=== PATIENT | male | born 1940 | race Caucasian/White ===

== ENCOUNTER 2017-11-03 09:06 | Inpatient (IN) | payer BC ==
[2017-11-03] VITALS (23 sets, daily range): BP systolic 110–161; BP diastolic 55–83; PULSE 58–89; RESP 10–23; Ht 177.8 cm; Wt 87.3 kg
[~2017-11-03] VITALS: Ht 177.8 cm; Wt 87.3 kg
[~2017-11-03 09:06] MED LIST: LIDOCAINE 2% (SDV) 5 ML INJ ONE
[2017-11-03] MEDS ORDERED: TRANEXAMIC ACID 1,000 MG in DEXTROSE 5% 100 ML IVPB ONE ×2 (09:30→12:00)
[2017-11-03] MEDS ORDERED: CEFAZOLIN 2 GM/50 ML (PMX) 50 ML IVPB ONE (09:30)
[2017-11-03] MEDS ORDERED: FINA5TAB4 PO (09:48)
[2017-11-03] MEDS ORDERED: LOSA1TAB28 PO (09:48)
[2017-11-03] MEDS ORDERED: CELE100C PO (09:49)
[2017-11-03] MEDS ORDERED: TERA10CA42 PO (09:49)
[2017-11-03] MEDS ORDERED: GABA100C14 PO (09:50)
--- NOTE | 2017-11-03 10:21 | HPN ---
Date/Time of Note Date/Time of Note DATE: 11/03/17 TIME: 10:21 Interval H&P Admission Note Pt. seen H&P reviewed: No system changes LAUREN KELLOGG PA-C Nov 03, 2017 10:21
[2017-11-03] MEDS ORDERED: ROPIVACAINE 0.2% 60 ML, CLONIDINE 100 MCG, EPINEPHrine 0.3 MG, SOD CHLORIDE 0.9% 50 ML INJ SCH ×4 (11:30)
[2017-11-03] MEDS ORDERED: POLYMYXIN B 500000 UNIT INJ ONE (12:43)
[2017-11-03] MEDS ORDERED: MIDAZOLAM 1 MG/ML 2 ML INJ ONE (13:15)
[2017-11-03] MEDS ORDERED: FENTAnyl 50 MCG/ML VIAL ONE (13:16)
[2017-11-03] MEDS ORDERED: PROPOFOL 20 ML ONE (13:31)
[2017-11-03] MEDS ORDERED: ROCURONIUM 50 MG INJ ONE (13:31)
[2017-11-03] MEDS ORDERED: DEXAMETHASONE 4 MG/ML 1 ML INJ ONE (13:32)
[2017-11-03] MEDS ORDERED: CEFAZOLIN 1 GM INJ ONE (13:32)
--- NOTE | 2017-11-03 14:29 | RADRPT ---
PROCEDURE: XR Knee. CLINICAL INDICATION: Left knee replacement TECHNIQUE: AP image of the left knee was obtained. The image was reviewed on a PACS workstation. COMPARISON: None. FINDINGS: The patient demonstrates placement of left knee replacement hardware, with femoral and tibial compon ents. Alignment appears near anatomic. There is medial soft tissue swelling. IMPRESSION: Single AP image demonstrates placement of left knee arthroplasty hardware. Medial soft tissue swelli ng. RPTAT: DD .Narendra Patrick MD, MD Date Time Electronically viewed and signed by .Narendra Patrick MD, MD on 11/03/2017 14:29 .T/
--- NOTE | 2017-11-03 14:47 | SIPON ---
Date/Time of Note Date/Time of Note DATE: 11/03/17 TIME: 14:46 Operative Report Preoperative Diagnosis left knee DJD Postoperative Diagnosis same Operation/Procedure Performed left total knee replacement Surgeon see signature line collections assistant Kedar Clay Second assist: LAUREN KELLOGG PA-C Anesthesia: spinal Estimated blood loss: 150 - 200 ml's Transfusion Required none Specimen none Grafts/Implants 6 femur, 6 tibia, 8 poly, 38 patella from [employer] system Complications none BRIANNA KAISER Nov 03, 2017 14:47
[2017-11-03] MEDS ORDERED: BACITRACIN 50000 UNITS INJ ONE (14:53)
[2017-11-03] MEDS ORDERED: ROPIVACAINE 0.5 % 30 ML VIAL ONE (14:56)
--- NOTE | 2017-11-03 15:08 | PDOCDIS ---
Discharge Instructions DIAGNOSIS Discharge Diagnosis Status post left total knee arthroplasty CONDITION Patient Condition: Good HOME CARE INSTRUCTIONS: Diet Instructions: Regular ACTIVITY: Activity Restrictions: Slowly Increase Activity Rest between Activity Avoid heavy lifting No Sexual Activity Do not Drive Do not operate Machinery Do not operate Power Tool Avoid Heavy Housework Keep Limb Elevated (2-3 pillows under the foot/ankle only. May use cold therapy over surgical dressing.) Weight Bearing (Weight-bear as tolerated using front wheeled walker) Bathing Restrictions: Shower (Mepilex dressing to remain on until postoperative visit. Keep the area clean and dry.) FOLLOW UP/APPOINTMENTS Follow-up Plan Follow-up at postoperative visit provided to you at your preoperative exam. LAUREN KELLOGG PA-C Nov 03, 2017 15:08
[2017-11-03] MEDS ORDERED: MEPERIDINE 25 MG INJ IV PRN (15:30)
[2017-11-03] MEDS ORDERED: ONDANSETRON 4 MG INJ IV PRN (15:30)
[2017-11-03] MEDS ORDERED: ASPIRIN (EC) 325 MG TAB PO ONE (15:30)
[2017-11-03] MEDS ORDERED: BISACODYL 10 MG SUPP PR PRN (15:30)
[2017-11-03] MEDS ORDERED: DIPHENHYDRAMINE 50 MG INJ IV PRN (15:30)
[2017-11-03] MEDS ORDERED: MAGNESIUM HYDROXIDE 30ML CUP PO PRN (15:30)
[2017-11-03] MEDS ORDERED: BETHANECHOL 25 MG TAB PO PRN (15:30)
[2017-11-03] MEDS ORDERED: hydrALAzine 20 MG INJ IV PRN (15:30)
[2017-11-03] MEDS ORDERED: FENTAnyl 50 MCG/ML VIAL IV PRN ×3 (15:30)
[2017-11-03] MEDS ORDERED: SENNA/DOCUSATE NA (8.6MG/50MG) TAB PO PRN (15:30)
[2017-11-03] MEDS ORDERED: oxyCODONE 5 MG TAB PO PRN ×2 (15:30)
[2017-11-03] MEDS ORDERED: DOCUSATE SODIUM 100 MG CAP PO ONE (15:30)
[2017-11-03] MEDS ORDERED: HYDROmorphONE (0.2 MG/ML) 10ML SYG IV PRN ×3 (15:30)
[2017-11-03] MEDS ORDERED: LABETALOL HCL 20MG INJ IV PRN (15:30)
[2017-11-03] MEDS ORDERED: NA PHOSPHATE/BIPHOS 133 ML ENEMA PR PRN (15:30)
[2017-11-03] MEDS ORDERED: DIPHENHYDRAMINE 50 MG INJ IM PRN (15:30)
[2017-11-03] MEDS ORDERED: EPHEDrine SULFATE 50 MG/5 ML SYG IV PRN (15:30)
[2017-11-03] MEDS ORDERED: KETOROLAC 30 MG INJ IV PRN (15:30)
[2017-11-03] MEDS ORDERED: KETOROLAC 15 MG INJ IV PRN (15:30)
[2017-11-03] MEDS ORDERED: METOCLOPRAMIDE 10 MG INJ IV PRN (15:30)
[2017-11-03] MEDS ORDERED: ZOLPIDEM 5 MG TAB PO PRN (15:30)
[2017-11-03] MEDS ORDERED: NALOXONE (0.4 MG/ML) INJ IV PRN (15:30)
[2017-11-03] MEDS: CEFAZOLIN 1 GM/50 ML (PMX) 50 ML IVPB SCH ×2 (15:49→23:38)
[2017-11-03] MEDS: ONDANSETRON 4 MG INJ IV SCH ×2 (15:49→21:30)
[2017-11-03] MEDS: SOD CHLORIDE 0.9% 1,000 ML IV SCH (18:06)
[2017-11-03] MEDS: CEPASTAT LOZENGE MT PRN ×2 (18:06→21:54)
--- NOTE | 2017-11-03 19:05 | CONS ---
DATE OF ADMISSION: 11/03/2017 DATE OF CONSULTATION: 11/03/2017 REASON FOR CONSULTATION: This is a 76-year-old male, status post left total knee replacement. HISTORY OF PRESENT ILLNESS: A 76-year-old male with past medical history of essential hypertension, osteoarthritis of both knees, enlarged prostate who was brought in for elective surgery after experiencing left knee pain for quite some time now. He describes his knee as "bone on bone" and underwent left total knee replacement earlier today. Presently denies any chest pain or shortness of breath. No fevers or chills, diarrhea or constipation, upper or lower GI bleeding. No nausea or vomiting. PAST MEDICAL HISTORY: As stated above. ALLERGIES: MELOXICAM. MEDICATION: Include: 1. Losartan/hydrochlorothiazide 100/12.5 one tab daily. 2. Terazosin 10 mg at bedtime. 3. Celebrex 10 mg b.i.d. 4. Gabapentin 100 mg t.i.d. 5. Finasteride 5 mg daily. PAST SURGICAL HISTORY: He has had 3 hernia repairs in the past. SOCIAL HISTORY: Occasional alcohol use. FAMILY HISTORY: Noncontributory. PHYSICAL EXAMINATION: VITAL SIGNS: T-max 98.3, pulse of 64-70, respirations 13-21, blood pressure is 152/79, saturating at 94 percent room air. GENERAL: The patient lying in bed, answers question appropriately. Family is at the bedside. No acute distress. HEENT: Pupils equal, round, react to light. Extraocular muscles intact. NECK: Supple. No thyromegaly. LUNGS: Clear to auscultation bilaterally. CARDIAC: S1, S2. No murmurs, rubs, gallops. ABDOMEN: Soft, nontender, nondistended. Normal bowel sounds. No rebound or guarding. MUSCULOSKELETAL: Slightly decreased range of motion left lower extremity, otherwise, no lower extremity edema bilaterally. NEUROLOGIC: No focal deficits. LABORATORY: There is no new laboratory reports. IMPRESSION AND PLAN: A 76-year-old male, status post left total knee replacement, history of arthritis, hypertension, enlarged prostate. 1. Status post left total knee replacement. Again, follow up recommendations from primary team including pain control medications, physical therapy, IV fluids. 2. Essential hypertension. Blood pressure is presently stable. Consider restarting patient's home blood pressure medicine in 24 hours. 3. History of enlarged prostate. Will reintroduce patients terazosin tonight and monitor urinary output. We will continue to follow. Dictated By: Da Bailon MD /ally/taylor Holcomb#: [id number]/Document#: [id number]
[2017-11-03] MEDS: LOSARTAN 50 MG TAB PO SCH (20:00)
[2017-11-03] MEDS: GABAPENTIN 100 MG CAP PO SCH (20:38)
[2017-11-03] MEDS ORDERED: TERAZOSIN 5 MG CAP PO SCH (21:00)
[2017-11-04] MEDS: ONDANSETRON 4 MG INJ IV SCH ×2 (02:32→08:18)
[2017-11-04] MEDS: SOD CHLORIDE 0.9% 1,000 ML IV SCH (04:05)
[2017-11-04 06:14] LABS: ADD UMIC YES; UR ASCORBIC ACID NEGATIVE (NEGATIVE); UR BILIRUBIN (Dip) NEGATIVE (NEGATIVE); UR BLOOD (Dip) 2+ mg/dL (NEGATIVE); UR CLARITY CLEAR (CLEAR); UR COLOR STRAW (YELLOW); UR GLUCOSE (Dip) NEGATIVE (NEGATIVE); UR KETONES (Dip) NEGATIVE (NEGATIVE); UR LEUKOCYTE ESTERASE (Dip) TRACE Leu/ul (NEGATIVE); UR NITRITE (Dip) NEGATIVE (NEGATIVE); UR RBC 6 /HPF (0-5); UR SPECIFIC GRAVITY (Dip) 1.009 (1.003-1.030); UR TOTAL PROTEIN (Dip) NEGATIVE (NEGATIVE); UR UROBILINOGEN (Dip) NEGATIVE (NEGATIVE)
[2017-11-04 07:23] VITALS: BP 146/76; RESP 18
--- NOTE | 2017-11-04 07:56 | PN ---
Date/Time of Note Date/Time of Note DATE: 11/04/17 TIME: 07:54 Assessment/Plan VTE Prophylaxis VTE Prophylaxis Intervention: ambulation, SCD's, other (Aspirin 325 mg) Lines/Catheters IV Catheter Type (from Nrsg): Peripheral IV Mendez in Place (from Nrsg): Yes Assessment/Plan Assessment/Plan -Pain Meds as needed -Patient will initiate physical therapy today. Patient will likely be going home if cleared by physical therapy. -ASA for DVT Prophylaxis x 4 weeks outpatient discussed. -Continue monitoring as outpatient on discharge -Follow-up at scheduled postop outpatient appointment or sooner if there is any issue. -Patient Stable -Discharge to Home with home health Subjective 24 Hr Interval Summary 76-year-old male postop day 1 status post left total knee arthroplasty. No acute overnight events. Patient has yet to start physical therapy as this case was finished late yesterday evening. Denies any calf pain, chest pain or tightness. Patient is resting comfortably in bed. Pain is well controlled. Constitutional: no complaints Exam/Review of Systems Vital Signs Vitals Vital Signs Date Time Temp Pulse Resp B/P Pulse Ox O2 Delivery O2 Flow Rate FiO2 11/04/17 07:23 97.9 84 18 146/76 98 11/03/17 23:36 Room Air Intake and Output 11/03/17 11/03/17 11/04/17 14:59 22:59 06:59 Intake Total 2050 ml 2470 ml Output Total 150 ml 1400 ml 1800 ml Balance -150 ml 650 ml 670 ml Exam Free Text/Dictation -No complications with dressing intact. -5/5 Tibialis Anterior, EHL Gastrocnemius/Soleus and Peroneals -Fully extending on exam today and flexing up to 80. -Normal Sensation -Palpable DP/PT, Capillary Refill <2 secs -No Distal Edema -Negative Antonio Sign/No calf pain -Toes Freely Movable Constitutional: alert, oriented, well developed LAUREN KELLOGG PA-C Nov 04, 2017 07:56
[2017-11-04] MEDS: CEFAZOLIN 1 GM/50 ML (PMX) 50 ML IVPB SCH (08:08)
[2017-11-04] MEDS: LOSARTAN 50 MG TAB PO SCH (08:11)
[2017-11-04] MEDS: GABAPENTIN 100 MG CAP PO SCH (08:12)
[2017-11-04] MEDS: CEPASTAT LOZENGE MT PRN (08:18)
[2017-11-04] MEDS ORDERED: HYDROCHLOROTHIAZIDE 12.5 MG CAP PO SCH (09:00)
[2017-11-04] MEDS ORDERED: FINASTERIDE 5 MG TAB PO SCH (09:00)
[2017-11-04] MEDS ORDERED: FERROUS FUMARATE (SR) TAB PO SCH (09:00)
[2017-11-04] MEDS ORDERED: DOCUSATE SODIUM 100 MG CAP PO SCH (09:00)
[2017-11-04] MEDS ORDERED: ASPIRIN (EC) 325 MG TAB PO SCH (09:00)
[2017-11-04 09:13] LABS: ABNORMAL IP MESSAGE 1; BASOPHILS % 0.1 % (0.0-2.0); HEMATOCRIT 32.7 % (42.0-52.0); HEMOGLOBIN 11.1 g/dl (14.0-18.0); LYMPHOCYTES # 1.1 10^3/ul (0.8-2.9); MEAN CORPUSCULAR HEMOGLOBIN 30.2 pg (29.0-33.0); MEAN CORPUSCULAR HGB CONC 33.9 g/dl (32.0-37.0); MEAN CORPUSCULAR VOLUME 89.1 fl (82.0-101.0); MEAN PLATELET VOLUME 13.3 fl (7.4-10.4); MONOCYTES % 9.2 % (0.0-11.0); NEUTROPHILS % 80.3 % (39.0-77.0); PLATELET COUNT 161 10^3/UL (140-415); POSITIVE DIFF @See below; RED BLOOD COUNT 3.67 10^6/ul (4.70-6.10); RED CELL DISTRIBUTION WIDTH 13.6 % (11.5-14.5); WHITE BLOOD COUNT 11.2 10^3/ul (4.8-10.8)
[2017-11-04 09:39] LABS: CALCIUM 9.5 mg/dl (8.4-10.2); CREATININE 0.99 mg/dl (0.61-1.24); POTASSIUM 3.9 mmol/L (3.5-5.1)
[2017-11-04] MEDS: oxyCODONE 5 MG TAB PO PRN ×2 (10:53→14:15)
--- NOTE | 2017-11-04 11:11 | CONS ---
Date/Time of Note Date/Time of Note DATE: 11/04/17 TIME: 11:08 Consult Date/Type/Reason Admit Date/Time Nov 03, 2017 at 09:06 Initial Consult Date Subjective No acute events overnight, work with PT, seen by Ortho team. Objective Vital Signs Date Time Temp Pulse Resp B/P Pulse Ox O2 Delivery O2 Flow Rate FiO2 11/04/17 07:23 97.9 84 18 146/76 98 11/03/17 23:36 Room Air Intake and Output 11/03/17 11/03/17 11/04/17 14:59 22:59 06:59 Intake Total 2050 ml 2470 ml Output Total 150 ml 1400 ml 1800 ml Balance -150 ml 650 ml 670 ml Results/Medications Result Diagram: 11/04/17 0751 11/04/17 0851 Results 24 hrs Laboratory Tests Test 11/04/17 05:50 11/04/17 07:51 11/04/17 08:51 Urine Color STRAW Urine Clarity CLEAR Urine pH 5.0 Urine Specific Wells 1.009 Urine Ketones NEGATIVE Urine Nitrite NEGATIVE Urine Bilirubin NEGATIVE Urine Urobilinogen NEGATIVE Urine Leukocyte Esterase TRACE A Urine Microscopic RBC 6 H Urine Microscopic WBC 2 Urine Hemoglobin 2+ H Urine Glucose NEGATIVE Urine Total Protein NEGATIVE White Blood Count 11.2 H Red Blood Count 3.67 L Hemoglobin 11.1 L Hematocrit 32.7 L Mean Corpuscular Volume 89.1 Mean Corpuscular Hemoglobin 30.2 Mean Corpuscular Hemoglobin Concent 33.9 Red Cell Distribution Width 13.6 Platelet Count 161 Mean Platelet Volume 13.3 H Neutrophils % 80.3 H Lymphocytes % 10.0 L Monocytes % 9.2 Eosinophils % 0.0 Basophils % 0.1 Nucleated Red Blood Cells % 0.0 Neutrophils # 9.0 H Lymphocytes # 1.1 Monocytes # 1.0 H Eosinophils # 0.0 Basophils # 0.0 Nucleated Red Blood Cells # 0.0 Sodium Level 137 Potassium Level 3.9 Chloride Level 105 Carbon Dioxide Level 27 Anion Gap 9 Blood Urea Nitrogen 14 Creatinine 0.99 Glucose Level 97 Calcium Level 9.5 Medications Current Medications Oxycodone HCl (Roxicodone) 20 mg Q3H PRN PO PAIN LEVEL 8-10; Start 11/03/17 at 15:30 Oxycodone HCl (Roxicodone) 10 mg Q3H PRN PO PAIN LEVEL 4-7; Start 11/03/17 at 15:30 Oxycodone HCl (Roxicodone) 5 mg Q3H PRN PO PAIN LEVEL 1-3 Last administered on 11/04/17 10:53; Admin Dose 5 MG; Start 11/03/17 at 15:30 Zolpidem Tartrate (Ambien) 5 mg HS PRN PO INSOMNIA; Start 11/03/17 at 15:30 Aspirin (Ecotrin) 325 mg DAILY PO Last administered on 11/04/17 08:11; Admin Dose 325 MG; Start 11/04/17 at 09:00 Pantoprazole (Protonix Tab) 40 mg DAILY@06 PO ; Start 11/05/17 at 06:00 Docusate Sodium/ Ferrous Fumarate (Brandy-Sequels) 1 tab BID PO Last administered on 11/04/17 08:10; Admin Dose 1 TAB; Start 11/04/17 at 09:00 Docusate Sodium (Colace) 200 mg BID PO Last administered on 11/04/17 08:10; Admin Dose 200 MG; Start 11/04/17 at 09:00; Stop 11/07/17 at 08:59 Simethicone (Mylicon) 80 mg TID PRN PO DISTENSION/GAS/BLOATING; Start 11/03/17 at 15:30 Senna/Docusate Sodium (Senokot-S) 2 tab BID PRN PO CONSTIPATION; Start at 15:30 Magnesium Hydroxide (Milk Of Mag) 30 ml HS PRN PO CONSTIPATION; Start 11/03/17 at 15:30 Bisacodyl (Dulcolax Supp) 10 mg DAILY PRN [place] CONSTIPATION; Start 11/03/17 at 15 :30 Sodium Biphosphate/ Sodium Phosphate (Fleet Enema) 133 ml DAILY PRN [place] CONSTIPATION; Start 11/03/17 at 15:30 Diphenhydramine HCl (Benadryl) 25 mg Q4H PRN IM ITCHING OR RASH; Start at 15:30 Naloxone HCl (Narcan) 0.2 mg Q2M PRN IV DECREASED REPIRATORY RATE; Start at 15:30 Ketorolac Tromethamine (Toradol) 15 mg Q6H PRN IV PAIN; Start 11/03/17 at 15:30 ; Stop 11/06/17 at 15:29 Gabapentin (Neurontin) 100 mg BID PO Last administered on 11/04/17 08:12; Admin Dose 100 MG; Start 11/03/17 at 21:00 Phenol (Cepastat Lozenge) 1 lozenge Q1H PRN MT SORE THROAT Last administered on 11/04/17 08:18; Admin Dose 1 LOZENGE; Start 11/03/17 at 18:00 Terazosin HCl (Hytrin) 10 mg HS PO Last administered on 11/03/17 20:38; Admin Dose 10 MG; Start 11/03/17 at 21:00 Finasteride (Proscar) 5 mg DAILY PO Last administered on 11/04/17 08:12; Admin Dose 5 MG; Start 11/04/17 at 09:00 Losartan Potassium (Cozaar) 100 mg DAILY PO Last administered on 11/04/17 08: 11; Admin Dose 100 MG; Start 11/03/17 at 20:00 Hydrochlorothiazide (Hydrochlorothiazide) 12.5 mg DAILY PO Last administered on 11/04/17 08:10; Admin Dose 12.5 MG; Start 11/04/17 at 09:00 Assessment/Plan Chief Complaint/Hosp Course IMPRESSION AND PLAN: A 76-year-old male, status post left total knee replacement, history of arthritis, hypertension, enlarged prostate. 1. Status post left total knee replacement - POD # 1. Again, follow up recommendations from primary team including pain control medications, physical therapy, IV fluids. 2. Essential hypertension. Blood pressure is presently stable. Continue current meds, monitor 3. History of enlarged prostate. Continue current meds, monitor we will continue to follow. Problems: JAMES SAMPSON Nov 04, 2017 11:11
[2017-11-05] MEDS ORDERED: PANTOPRAZOLE (EC) 40 MG TAB PO SCH (06:00)
--- NOTE | 2017-11-05 08:30 | DS ---
Date/Time of Note Date/Time of Note DATE: 11/05/17 TIME: 08:29 Discharge Summary Admission/Discharge Info Admit Date/Time Nov 03, 2017 at 09:06 Discharge Date/Time Nov 04, 2017 at 16:40 Discharge Diagnosis Status post left total knee arthroplasty Patient Condition: Good Hospital Course On the day of admission, the patient underwent left total knee replacement Intraoperative complications: None Postoperative complications: None The patient was given prophylactic antibiotics and anticoagulants. On the day of surgery and first postoperative day patient was started on gait training and was taught usual restrictions following knee replacement On postoperative day 1 dressing was clean dry and intact. No complications were observed. On the day of discharge, the wound was clean and healing well; there was no sign of infection. Wound care instructions were discussed with the patient. Discharge Temperature: 97.9 Discharge White Blood Cell Count: 11.2 Discharge Hemoglobin: 11.1 The patient was discharged home with home health. Arrangements were made for visiting nurses and home health/physical therapy. The patient will be seen in office at scheduled postoperative evaluation date given on their preoperative exam. Should patient complain of any problems prior to scheduled postoperative evaluation date, they may call into outpatient clinic to determine if they need to be scheduled at sooner appointment to be seen immediately if needed. Discharge medications: As per medication reconciliation form Diet: Same as preadmission diet. This is Lauren Degroot PA-C dictating discharge summary for Dr. Gross. Home Meds Reported Medications Gabapentin* (Gabapentin*) 100 Mg Capsule, 100 MG PO TID, #90 CAP 11/03/17 Celecoxib* (Celebrex*) 100 Mg Capsule, 100 MG PO BID, CAP 11/03/17 Terazosin Hcl* (Terazosin Hcl*) 10 Mg Capsule, 10 MG PO HS, CAP 11/03/17 Finasteride* (Finasteride*) 5 Mg Tablet, 5 MG PO DAILY, TAB 11/03/17 Losartan-Hydrochlorothiazide (Losartan-HCTZ) 100-12.5 Mg Tab, 1 TAB PO DAILY, TAB 11/03/17 Follow-up Plan Follow-up at postoperative visit provided to you at your preoperative exam. Primary Care Provider Megan Garcia Pending Labs Laboratory Tests Test 11/04/17 08:51 Sodium Level 137mmol/L (135-144) Potassium Level 3.9mmol/L (3.5-5.1) Chloride Level 105mmol/L (97-110) Carbon Dioxide Level 27mmol/L (21-31) Anion Gap 9 (8-16) Blood Urea Nitrogen 14mg/dl (7-20) Creatinine 0.99mg/dl (0.61-1.24) Glucose Level 97mg/dl (70-220) Calcium Level 9.5mg/dl (8.4-10.2) LAUREN KELLOGG PA-C Nov 05, 2017 08:30
--- NOTE | 2017-11-14 15:29 | OPR ---
Date/Time of Note Date/Time of Note DATE: 11/14/17 TIME: 15:21 Operative Report Procedure Date: Nov 03, 2017 Preoperative Diagnosis left knee DJD Postoperative Diagnosis same Operation/Procedure Performed left total knee replacement Surgeon see signature line Dozer Operator Dr. Gates Second Dozer Operator: LAUREN KELLOGG PA-C Anesthesia Type: spinal Estimated Blood Loss: 150 - 200 ml's Transfusion none Specimen bone Grafts/Implants [employer] 6 femur, 6 tibia, 8 poly, 38 patella Tubes/Drains none Complications none Pt Condition Post Procedure: stable Disposition: PACU Indications 76 yr old male with advanced DJD of the left knee, failed conservative treatment Procedure Description The patient was placed supine on the operating room table. The left knee was prepped and draped in the usual manner. An anterior incision was made on the left knee. A mid vastus approach was made. The patella was displaced laterally without everting it. Using intramedullary alignment, the femoral cut was made in 5 of valgus. The femur was measured to be a size 6 from the [employer] knee system. The size 6 cutting block was placed on the distal femur and anterior posterior and chamfer cuts made. A notch was cut in the distal femur to accommodate the posterior stabilized femoral component. The PCL was sacrificed. Remnants of the menisci were removed. Hemostasis was achieved with electrocautery and AquaMantys. The tibia was cut using external alignment and the patella cut using a freehand technique. Trials were inserted including a 6 femur, 6 tibia and 38 patella. 8 mm of polyethylene resulted in a stable knee with good range of motion from 0-120. There was good balance in tracking of the knee. X-rays were obtained to confirm alignment. Once satisfactory alignment was confirmed, final implants were cemented in place including a 6 femur 6 tibia and 38 patella. 8 mm of polyethylene were placed and the knee thoroughly irrigated. The knee was injected with Marcaine and Toradol. The knee was closed in layers using #1 Vicryl for arthrotomy and fascia, 2-0 Vicryl for subcutaneous tissue and 3-0 Monocryl for the skin. Patient was transferred to the recovery room in stable condition. BRIANNA KAISER Nov 14, 2017 15:29
== END 2017-11-04 16:40 | disposition home health service (06) | DRG 470 ==
LOC: REC 09:06 → MS1 17:20
PROVIDERS: ADMIT Orthopaedic Surgery; ATTEND Orthopaedic Surgery
PROC: 0SRD0J9 Replacement of Left Knee Joint with Synthetic Substitute, Cemented, Open Approach (ICD-10-PCS; principal; 2017-11-03 11:30)
DX: M17.12 Unilateral primary osteoarthritis, left knee (principal); I10 Essential (primary) hypertension; N40.0 Benign prostatic hyperplasia without lower urinary tract symptoms
CPT/HCPCS: 73560; 80048; 81001; 85025; 86850; 86900; 86901; 87081; 87086; 88304; 88311; 97110; 97116; 97163; 97165; 97535; C1713; C1776; J0171; J0690; J0735; J1100; J2250; J2405; J2795; J3010; J7030

== ENCOUNTER 2018-03-04 09:10 | Inpatient (IN) | END 2018-03-05 17:30 | disposition home health service (06) | DRG 470 ==